=== PATIENT | female | born 1935 | race Caucasian/White ===

== ENCOUNTER 2022-10-06 13:06 | Outpatient (AMB) | payer OTHER, SELFPAY ==
[2022-10-06 13:21] VITALS: BP 182/80; PULSE 98; RESP 18; O2SAT 94; BMI 25.9
--- NOTE | 2022-10-06 13:21 | A.OFFVIS_ITS ---
Intake Vital Signs 10/06/22 13:21 Height 5 ft 3 in Weight 146 lb 8 oz BMI 25.9 BP 182/80 H Blood Pressure Location Lt brachial Position Sitting Respiration 18 Pulse 98 Pulse Source Pulse Oximeter Pulse Oximetry (%) 94 Oxygen Delivery Method Room Air Intake Visit Reasons: Severe spinal stenosis Allergies No Known Allergies Allergy (Verified 10/06/22 13:18) HPI HPI Comments History of Present Illness Details Kristen is a very pleasant 87 year old female who presents to the office today with her daughter for evaluation and management of her chronic lower back pain. Patient has been suffering with this pain for many years, she has been under treatment at [facility] where she has received two epidural steroid injections with minimal relief. She is awaiting insurance authorization for a third TFESI per patient, confirmed on referral paperwork received from their office. She has tried OTC medications without relief, she reports inability to take NSAIDs d/t kidney impairment but states will take when pain is severe and does get some relief. She is on Tramadol 50mg po twice daily with minimal relief, asking if she should increase her dose for better pain control. She was evaluated by surgeon with [facility] and was told that she is not a surgical candidate d/t her age and current smoking status. Patient reports pain left lower back radiating down left leg. Pain most severe with walking to the point she gave her hearing service dog away because she was not able to care for the dog. Ambulates with roller walker, states her left leg will give out at times. She denies red flag symptoms including new loss of bowel, bladder or saddle anesthesia. In terms of muscle damage condition is described as aching, shooting, stabbing, tiring, exhausting, sharp and throbbing. Pain negatively impacting her walking, mood, overall functioning and mobility. [facility] Medical History (Updated 10/06/22 @ 14:43 by Keyla Wilkinson, BUSINESS OBJECTS DEVELOPER, RFID STRATEGIST) Chronic obstructive pulmonary disease, unspecified Emphysema, unspecified High blood pressure Osteopenia Osteoporosis Review of Systems Const All systems reviewed & are unremarkable except as noted in HPI and below Physical Exam Vital Signs: Last Vital Signs Pulse 98 10/06/22 13:21 Resp 18 10/06/22 13:21 BP 182/80 H 10/06/22 13:21 Pulse Ox 94 10/06/22 13:21 Oxygen Delivery Method Room Air 10/06/22 13:21 BMI result Body Mass Index 25.9 General: awake, alert, oriented. Answers questions appropriately. Fully engaged in examination. Skin: warm, dry, intact without visible rashes or lesions. HEENT: Normocephalic. Hearing impaired. Cardiac: External chest normal in appearance. Respiratory: No cough, audible wheezing or stridor. Abdomen: without gross distension. MS: Able to transition from sit to stand unassisted. Ambulates with use of roller walker Neurological: Oriented to person, place, time and situation. Thought process intact. Psychiatric: Appropriate mood and affect. Good judgment and insight. Results Reviewed Results Reviewed: Assessment & Plan Assessment & Plan (1) Lumbar stenosis with neurogenic claudication: Code(s): M48.062 - Spinal stenosis, lumbar region with neurogenic claudication Plan Kristen is a very pleasant 87 year old female who presents to the office today for evaluation and management of her chronic lower back pain. History and physical exam consistent with lumbar spinal stenosis with neurogenic claudication. Discussed with patient that after review of her MRI results she is not candidate for MILD procedure d/t instability, 9mm L4-5 anterolisthesis. Referral sent to Dr Carpenter for neurosurgical evaluation. Patient will obtain MRI disc from [facility] and hand deliver to our office. Tens unit ordered, patient provided pamphlet with instructions for use. Topical compound cream sent to pharmacy, patient instructed on use. Patient discouraged from increasing her Tramadol dose d/t increased risk of falls. She reports her gait is already slightly unsteady and at times left leg will give out, she lives alone and a fall could lead to debilitating injury/permanent disability/. Discussed options for treatment including diagnostic interventional testing, epidural steroid injections, peripheral nerve stimulation with Sprint, RFA and more permanent neuromodulation. Informational pamphlets provided. Patient would like to proceed with Fluoroscopy guided Caudal DAVID with local anesthetic. She will call [facility] and cancel pending insurance authorization for TFESI. Pamphlet for [facility]CS provided to patient to review, would need psych eval prior for clearance prior to moving forward with implantable device. All questions and concerns have been answered and patient agrees with the plan. Follow up after injection and sooner if needed. Orders: Referrals Neuro Spine Referral M48.062 - Spinal stenosis, lumbar region with neurogenic claudication Medications: New cream base no.105 (bulk) (Base W301 cream) Ketoprofen 10%, Baclofen 5%, Cyclobenzaprine 2%, Bupivacaine 1% SIG: apply pea-sized amount 3-5 times daily to painful areas as needed 180 grams 1RF pain Coding Level of Care Code New Pt Level 4 (18549) Diagnoses Lumbar stenosis with neurogenic claudication M48.062
== END 2022-10-06 14:08 | disposition home or self-care (01) ==
PROVIDERS: PCP Physician Assistant; Visit Provider Registered Nurse Emergency
DX: M48.062 Spinal stenosis, lumbar region with neurogenic claudication (principal)
CPT/HCPCS: 99204

== ENCOUNTER → 2022-10-06 13:06 | Outpatient (BNVA) | payer OTHER, SELFPAY | PROVIDERS: PCP Physician Assistant; Visit Provider Registered Nurse Emergency | DX: M48.062 Spinal stenosis, lumbar region with neurogenic claudication (principal) | CPT/HCPCS: 99202 ==

== ENCOUNTER 2022-10-26 06:00 | Outpatient (REF) | payer OTHER, SELFPAY ==
--- NOTE | ~2022-10-26 | FL_ITS ---
CLINICAL INDICATION: Lumbar radiculopathy. FINDINGS: Technical assistance and equipment were provided by the Department of Radiology during intraoperative fluoroscopy. 3, limited fluoroscopic spot images are submitted. A radiologist was not present during the procedure. Initial image demonstrates the tip of a percutaneous needle to project over the posterior elements of the lower cervical spine. Subsequent images demonstrate what may be placement of a tubular structure and injection of contrast in this general region. The images are available for review on PACS. TOTAL FLUOROSCOPY TIME: 0.5 minutes. DOSE AREA PRODUCT: 0.06 mGy-m2 (milligray-meter squared) FL/FL guidance in treatment room IMPRESSION: Technical assistance and equipment provided by the Department of Radiology during intraoperative fluoroscopy, as above. Please see operative report for further details.
== END 2022-10-26 06:01 | disposition home or self-care (01) ==
LOC: CF 06:00
PROVIDERS: Visit Provider Internal Medicine
DX: M48.062 Spinal stenosis, lumbar region with neurogenic claudication (principal); M54.16 Radiculopathy, lumbar region
CPT/HCPCS: 62323; J1040

== ENCOUNTER 2022-10-26 09:03 | Outpatient (AMB) | payer OTHER, SELFPAY ==
--- NOTE | 2022-10-26 09:11 | A.OFFVIS_ITS ---
Intake Vital Signs 10/26/22 09:47 10/26/22 09:48 BP 178/78 H 186/70 H Blood Pressure Location Lt brachial Lt brachial Position Sitting Sitting Respiration 14 14 Pulse 71 71 Pulse Source Pulse Oximeter Pulse Oximeter Pulse Oximetry (%) 94 93 Oxygen Delivery Method Room Air Room Air Intake Visit Reasons: caudal DAVID w/ cath Allergies No Known Allergies Allergy (Verified 10/26/22 09:11) HPI caudal DAVID w/ cath HPI Details Patient presents for scheduled procedure. Denies any recent cough, cold, infection, fever or other significant changes in medical history since last office visit. [facility] Medical History (Updated 10/06/22 @ 14:43 by Keyla Wilkinson, MARINE SERVICE STATION ATTENDANT, REGIONAL CONTROLLER) Chronic obstructive pulmonary disease, unspecified Emphysema, unspecified High blood pressure Osteopenia Osteoporosis Office Procedures Joint Injection/Drain Joint Injection/Drain Details: Caudal DAVID with catheter After obtaining written consent, pre-procedure blood pressure and pulse were measured. Standard monitors were applied. The patient was placed in the prone position. The lumbosacral area was widely prepped with chloraprep and draped in sterile fashion. The skin overlying the target was anesthetized with 0.5% lidocaine. A 17 G needle was used to access the caudal epidural space using anatomic landmarks and x-ray guidance. We then threaded a catheter up to the L5/S1 level and injected contrast 1cc Isovue 300 for verification of epidural spread. Following negative aspiration of heme or CSF, 10 mL of normal saline and then a mixture of 5 ml 0.5% lidocaine with 80 mg methylprednisolone was injected with minimal pressure into the epidural space. The needle was removed, skin cleansed and a sterile bandage was applied. The patient tolerated the procedure well and no complications were encountered. Following the procedure the patient's vital signs were stable. The patient was discharged home in good condition with post-procedural instructions. Time Out: Immediately prior to the procedure, the following was verbally confirmed that there is a signed consent form and that the correct patient, planned procedure, site and side are consistent with documentation and that necessary equipment and/or blood products are available prior to the start of the case. Complications: none EBL: <5 cc Coding 94404 - Caudal/Lumbar Epidural/Interlaminar with fluoroscopy Procedure code (CPT) selection complete Assessment & Plan Assessment & Plan (1) Lumbar stenosis with neurogenic claudication: Code(s): M48.062 - Spinal stenosis, lumbar region with neurogenic claudication (2) Lumbar radiculopathy: Code(s): M54.16 - Radiculopathy, lumbar region Plan Patient is status post caudal DAVID with catheter threaded towards left L5/S1 level. Patient tolerated procedure well and was discharged home in stable condition with discharge instructions. All questions were answered. We will follow-up via telephone or in clinic to assess response to therapy. A follow-up appointment was made during today's visit. Coding Level of Care Code Procedure Only Diagnoses Lumbar stenosis with neurogenic claudication M48.062 Lumbar radiculopathy M54.16 CPT Codes Coding - Joint 11: 81197 - Caudal/Lumbar Epidural/Interlaminar with fluoroscopy ([id number])
[2022-10-26 09:47] VITALS: BP 178/78; PULSE 71; RESP 14; O2SAT 94
[2022-10-26 09:48] VITALS: BP 186/70; PULSE 71; RESP 14; O2SAT 93
== END 2022-10-26 09:47 | disposition home or self-care (01) ==
LOC: HO.PMCPRC 09:04
PROVIDERS: PCP Physician Assistant; Visit Provider Internal Medicine
DX: M48.062 Spinal stenosis, lumbar region with neurogenic claudication (principal); M54.16 Radiculopathy, lumbar region
CPT/HCPCS: 62323

== ENCOUNTER 2022-11-01 13:58 | Outpatient (AMB) | payer OTHER, SELFPAY ==
--- NOTE | 2022-11-01 14:34 | A.SPINEOV_ITS ---
Intake Intake Visit Reasons: low back pain Intake Note: Ms. Brewster is here today c/o low back pain. MRI done @ [facility]/brought disc. Farmworker Fruit Required: No Allergies No Known Allergies Allergy (Verified 10/26/22 09:11) Assessment & Plan Assessment & Plan (1) Lumbar radiculopathy: Code(s): M54.16 - Radiculopathy, lumbar region Plan Dear Keyla, Thank you for referring Mrs Brewster to our office today. She is an 87-year-old female who was in her usual state health until December last year when she was out for a walk and noticed that she was not feeling normal. She thought she just slept wrong but over the following few days she developed a severe radiculopathy going down into her left leg into her lateral calf and into her lateral ankle. The pain is gotten progressively worse over time to where now she has to walk with a walker. Last year she was able to do things like kayaking and walk the track at the [facility]. She is very frustrated and feels like this has aged her quickly. If she is sitting she has no pain at all but when she stands and tries to walk it almost immediately makes her have to sit down. She tried doing epidural injections at [facility] as well as at the [facility] office. She has not gotten any relief from the injections. She tried physical therapy. She has tried tramadol, oxycodone, gabapentin and duloxetine. Nothing seems to be working and she is very frustrated with her quality of life at this point. She did undergo an MRI and x-ray showing a grade 1-2 spondylolisthesis at L4-5. She saw Dr. Najera at [facility] who was concerned about doing surgery on her at her age, specifically he was going to do a spinal fusion procedure in told her that he was not sure would even work but was very reluctant to try anything else. She is here today for 2nd opinion. PMH: She is missing 1 of her kidneys secondary to an E coli infection in the when she was septic. She has a history of hypertension, lifelong smoker and hysterectomy Social hx: She currently smokes about half a pack a day Medications: Oxycodone, gabapentin, Clyo 3, multi vitamin, loratadine, valsartan and duloxetine Allergies: None Physical exam: She walks with a walker, she has full strength of bilateral lower extremities. Imaging review: Lumbar MRI done a [facility] as well as standing flexion-extension x-ray show grade 1-2 spondylolisthesis at L4-5 with small amount of movement on flexion-extension studies. There is compression in the right L4 foramen and in the lateral recess on the left at L4-5 and moderate stenosis in the L5 foramen Impression: 87-year-old female presenting with an left L5 radiculopathy, suspected to be caused by the spondylolisthesis at L4-5, and some foraminal compression in the L5 foramen. Her x-rays do show some evidence of movement with flexion-extension. She has been turned down at [facility] because of her age in considerations of possible hardware failure and complications. She has failed conservative treatment. She is asking if anything else can be done. Typically this would be a situation where we would consider something like an OLIF with a larger cage, but because of her age and her bone quality she is high risk for complications. She is also wishing to avoid the extensive recovery of lumbar fusion. I told her I would speak with Dr. Carpenter to see if he has any other minimally invasive options like a simple small laminotomy to try to decompress the nerve. I could not make any promises but told her I would discuss it with him. I will get back to her once I have a chance to review the imaging with him. Thank you for allowing us to care for your patient. The total time spent with this visit with this patient was 45 minutes reviewing history, physical exam, lumbar imaging review, and implementation of treatment plan or further diagnostic testing Luiz Carpenter MD,PhD [facility] Coding Level of Care Code New Pt Level 4 (37532) Diagnoses Lumbar radiculopathy M54.16
== END 2022-11-01 14:45 | disposition home or self-care (01) ==
PROVIDERS: PCP Physician Assistant; Referring Provider Registered Nurse Emergency; Visit Provider Physician Assistant
DX: M54.16 Radiculopathy, lumbar region (principal)
CPT/HCPCS: 99204

== ENCOUNTER → 2022-11-01 13:58 | Outpatient (BNVA) | payer OTHER, SELFPAY | PROVIDERS: PCP Physician Assistant; Referring Provider Registered Nurse Emergency; Visit Provider Physician Assistant | DX: M54.16 Radiculopathy, lumbar region (principal) | CPT/HCPCS: 99202 ==

== ENCOUNTER 2022-12-14 13:05 | Outpatient (AMB) | payer OTHER, SELFPAY ==
--- NOTE | 2022-12-14 13:19 | A.SPINEOV_ITS ---
Intake Intake Visit Reasons: Meet Dr. Carpenter Intake Note: Ms. Brewster is here today to meet Dr. Carpenter. She is scheduled for Lt. L4-5 MLD 01/05/23. Allergies No Known Allergies Allergy (Verified 10/26/22 09:11) Assessment & Plan Assessment & Plan (1) Lumbar stenosis with neurogenic claudication: Code(s): M48.062 - Spinal stenosis, lumbar region with neurogenic claudication Plan Dear colleague, on 12/14/2022 I saw for preoperative visit Kristen Gilmore. She scheduled to undergo a unilateral L4-5 decompression to address left lumbar radiculopathy. We briefly discussed the procedure and expected postoperative course. I will keep you updated on her progress. Nathan Carpenter MD, PhD Spine Fellowship Trained Neurosurgeon Director, [facility] Coding Level of Care Code Est Pt Level 2 (08185) Diagnoses Lumbar stenosis with neurogenic claudication M48.062
== END 2022-12-14 13:37 | disposition home or self-care (01) ==
PROVIDERS: PCP Physician Assistant; Visit Provider Neurological Surgery
DX: M48.062 Spinal stenosis, lumbar region with neurogenic claudication (principal)
CPT/HCPCS: 99212

== ENCOUNTER → 2022-12-14 13:05 | Outpatient (BNVA) | payer OTHER, SELFPAY | PROVIDERS: PCP Physician Assistant; Visit Provider Neurological Surgery | DX: M48.062 Spinal stenosis, lumbar region with neurogenic claudication (principal) | CPT/HCPCS: 99212 ==

== ENCOUNTER → 2023-01-05 11:33 | Day surgery (SDC) | payer OTHER, SELFPAY ==
[2022-12-16 13:15] VITALS: BP 197/88; PULSE 63; RESP 16; O2SAT 95; BMI 25.7
--- NOTE | 2022-12-16 14:15 | ECG_ITS ---
Test Reason : preop24 Blood Pressure : / mmHG Vent. Rate : 060 BPM Atrial Rate : 060 BPM P-R Int : 162 ms QRS Dur : 088 ms QT Int : 422 ms P-R-T Axes : 069 040 056 degrees QTc Int : 422 ms Normal sinus rhythm Possible Left atrial enlargement Borderline ECG No previous ECGs available Referred By: Analy Young Electronically Signed By:JOSE R DUKE MD
[2022-12-16 15:28] LABS: Hemoglobin 14.8 g/dl (12.0-16.0); Mean Corpuscular HGB Conc 33.6 g/dl (31.0-35.0); Mean Corpuscular Hemoglobin 31.9 pg (27.0-33.0); Mean Corpuscular Volume 94.8 fL (80.0-98.0); Mean Platelet Volume 10.3 fL (9.4-12.3); Platelet Count 256 X10*3/uL (160-400); Red Blood Count 4.64 X10*6/uL (4.20-5.50); Red Cell Distribution Width 13.4 % (11.0-16.0); White Blood Count 10.8 X10*3/uL (4.8-10.8)
[2022-12-16 15:58] LABS: Anion Gap 14 (12-20); Blood Urea Nitrogen 22 mg/dL (9-16); Calcium 10.7 mg/dL (8.4-10.2); Carbon Dioxide 28 mmol/L (22-29); Chloride 101 mmol/L (96-108); Creatinine Clr Calc Pharmacy 42.2; Estimated Glomerular Filt Rate > 60; Glucose Random 75 mg/dL (60-115); Potassium 4.2 mmol/L (3.3-5.1); Sodium 139 mmol/L (135-145)
--- NOTE | 2023-01-04 13:41 | HO.ANESPROP2 ---
HPI - Anesthesia Eval Consult details Narrative: 87yo F for Left L4-L5 Lumbar Decompression PAT eval with Dr Young on 12/16/22 BP elevated at PAT (WNL at PCP appointment) Medically optimized per PCP Follows Zoya mclaughlin. Last office visit 07/2022. Stable on low dose Trelegy and only prn f/u. Smoker PMFSH Active Problems Active Problems: All Active Problems (Updated 12/16/22 @ 12:39 by Arianna Bowie RN) Lumbar radiculopathy (Acute) Facet arthritis of lumbar region (Acute) Lumbar stenosis with neurogenic claudication (Acute) Past Medical History Medical History (Updated 12/16/22 @ 12:39 by Arianna Bowie RN) Back pain History of decreased renal function Depression Weakness of left leg History of hearing loss Hx of sepsis Emphysema, unspecified Chronic obstructive pulmonary disease, unspecified Osteoporosis Osteopenia High blood pressure Surgical History Surgical History (Updated 12/16/22 @ 12:37 by Arianna Bowie RN) H/O colonoscopy Hx of hysterectomy Social History Social History Are you a primary farm or ranch animal caretaker to a significant other at home: No Do you presently have visiting nurse or other home services: Yes (PCT) Patient Tobacco Use Status: Current everyday Tobacco user Tobacco use type: Cigarette Cigarettes Per Day: 5 Years Smoked: 70 Use of substances other than those prescribed or required for medical reasons: No Substance Use Type Other:: gummies Substance Use Frequency: Occasionally Have you been hit, kicked, punched, or otherwise hurt by someone within the past year? If so, by whom?: No Advance Directives: No Advance Directives Information Provided: No Advance Directives on File: No Recently lost weight without trying: No Eating poorly because of decreased appetite: No Nutrition Risks: No Nutritional Risk Patient : No : No Poor oral hygiene: Yes (upper crowns) Meds Allergies Allergy/AdvReac Type Severity Reaction Status Date / Time No Known Allergies Allergy Verified 10/26/22 09:11 Home Medications Medication Instructions Recorded Confirmed Last Taken Type aripiprazole 5 mg tablet 5 mg PO DAILY 10/06/22 12/16/22 Unknown History fluticasone fur. 100 mcg-umeclid 1 ea inhalation DAILY 10/06/22 12/16/22 Unknown History 62.5 mcg-vilant 25 mcg inhalat.powder (Trelegy Ellipta) folic acid 1 mg tablet 1 mg PO DAILY 10/06/22 12/16/22 Unknown History gabapentin 100 mg capsule 200 mg PO DAILY 10/06/22 12/16/22 Unknown History ipratropium bromide 42 mcg (0.06 1 spray intranasal DAILY PRN 10/06/22 12/16/22 Unknown History %) nasal spray Allergy Symptoms loratadine 10 mg tablet 10 mg PO DAILY 10/06/22 12/16/22 Unknown History nebivolol 10 mg tablet 10 mg PO DAILY 10/06/22 12/16/22 Unknown History tramadol 50 mg tablet 150 mg PO DAILY PRN Pain 10/06/22 12/16/22 Unknown History valsartan 160 mg tablet 160 mg PO DAILY 10/06/22 12/16/22 Unknown History cream base no.105 (bulk) (Base See Rx Instructions miscellaneous 12/16/22 12/16/22 Unknown History W301 cream) .COMPLEX PRN pain gabapentin 100 mg capsule 100 mg PO BEDTIME 12/16/22 12/16/22 Unknown History tramadol 50 mg tablet 50 mg PO DAILY@1700 12/16/22 12/16/22 Unknown History Exam Exam Date and Time: January 04, 2023 1341 Height,Weight and Vital Signs: Height 5 ft 3 in Weight 65.771 kg Last Vital Signs Pulse 63 12/16/22 13:15 Resp 16 12/16/22 13:15 BP 197/88 H 12/16/22 13:15 Pulse Ox 95 12/16/22 13:15 O2 Del Method Room Air 12/16/22 13:15 Pertinent Lab Results Pertinent Lab Results: Laboratory Tests 12/16/22 14:30 WBC 10.8 RBC 4.64 Hgb 14.8 Hct 44.0 MCV 94.8 MCH 31.9 MCHC 33.6 RDW 13.4 Plt Count 256 MPV 10.3 Absolute Nucleated RBC 0.000 Nucleated RBC % (auto) 0.0 Sodium 139 Potassium 4.2 Chloride 101 Carbon Dioxide 28 Anion Gap 14 BUN 22 H Creatinine 0.84 Estim Creat Clear Calc 42.2 Estimated GFR > 60 Random Glucose 75 Calcium 10.7 H Narrative Narrative: EKG 11/2022 Vent. Rate : 060 BPM Atrial Rate : 060 BPM P-R Int : 162 ms QRS Dur : 088 ms QT Int : 422 ms P-R-T Axes : 069 040 056 degrees QTc Int : 422 ms Normal sinus rhythm Possible Left atrial enlargement Borderline ECG No previous ECGs available Assessment and Plan Assessment Anesthesia Assessment: Chart Reviewed
--- NOTE | 2023-01-05 07:03 | MHC.SHP ---
Pre-Procedural Eval Section A Date of Service: 01/05/23 Section B Chief Complaint: Radiculopathy, lumbar region Allergies: Allergies Allergy/AdvReac Type Severity Reaction Status Date / Time No Known Allergies Allergy Verified 10/26/22 09:11 Review of Systems Sugical H&P ROS: Negative: Constitution, Cardiovascular, Respiratory, Neurological, Psychiatric, Hem-Onc, Allergic/Immunologic, Gastrointestinal, Genitourinary, Musculoskeletal, Integumentary, Endocrine and Eyes/Ears/Nose/Throat Exam Surgical H&P Exam: Not Evaluated: HEENT, Not Evaluated: Heart, Not Evaluated: Lungs, Not Evaluated: Extremities, Not Evaluated: Abdomen, Not Evaluated: Skin and Not Evaluated: Neurological Plan Diagnosis/Plan: Unchanged I have reviewed the history and physical and performed a pertinent physical examination on my patient. No changes have occurred unless specified. Plan remains the same, left L4-5 lumbar decompression Time Spent With Patient Time: Total time managing care of this patient today _10___ minutes.
[2023-01-05 11:52] VITALS: BP 214/68; PULSE 68; RESP 20; TEMP 36.6; O2SAT 95
[2023-01-05 12:00] VITALS: BP 234/78; PULSE 70; RESP 18
--- NOTE | 2023-01-05 12:06 | PC.NURSE ---
pt being cancelled b/p high sts took double dose of b/p meds last night denies c/p denies dizziness sts b/p alway high seen pcp for her b/p. will f/u with pcp . spoke to daughter elli aware careplan and need to f/u with pcp
== END ==
PROVIDERS: Anesthesiology; PCP Family Medicine; Visit Provider Neurological Surgery
DX: M54.16 Radiculopathy, lumbar region (principal); Z53.09 Procedure and treatment not carried out because of other contraindication; I10 Essential (primary) hypertension
CPT/HCPCS: 36415; 80048; 85027; 93005

== ENCOUNTER 2023-02-28 09:14 | Day surgery (SDC) | payer OTHER, SELFPAY ==
[2023-02-17 11:47] VITALS: BMI 24.4
--- NOTE | 2023-02-27 09:39 | P.CONAN_ITS ---
HPI - Anesthesia Eval Consult details Narrative: 87yo F for Left L4-L5 Lumbar Decompression PAT eval with Dr Young on 12/16/22 then cx'd DOS d/t high BP. BP elevated at PAT (WNL at PCP appointment) Medically optimized per PCP. Re-eval after surgery cx'd. BP ok at visit and re- cleared Follows Zoya mclaughlin. Last office visit 07/2022. Stable on low dose Trelegy and only prn f/u. Smoker PMFSH Active Problems Active Problems: All Active Problems (Updated 02/17/23 @ 11:05 by Arianna Bowie RN) Lumbar radiculopathy (Acute) Facet arthritis of lumbar region (Acute) Lumbar stenosis with neurogenic claudication (Acute) Past Medical History Medical History (Updated 02/17/23 @ 11:05 by Arianna Bowie RN) Overactive bladder Incontinence Atrophy of left kidney COVID-19 Back pain History of decreased renal function Depression Weakness of left leg History of hearing loss Hx of sepsis Emphysema, unspecified Chronic obstructive pulmonary disease, unspecified Osteoporosis Osteopenia High blood pressure Surgical History Surgical History (Updated 12/16/22 @ 12:37 by Arianna Bowie RN) H/O colonoscopy Hx of hysterectomy Social History Social History Are you a primary animal care provider to a significant other at home: No Do you presently have visiting nurse or other home services: Yes (meals on wheels) Patient Tobacco Use Status: Current everyday Tobacco user Tobacco use type: Cigarette Cigarettes Per Day: 3 Years Smoked: 70 Use of substances other than those prescribed or required for medical reasons: No Have you been hit, kicked, punched, or otherwise hurt by someone within the past year? If so, by whom?: No Advance Directives: No Advance Directives Information Provided: No Advance Directives on File: No Recently lost weight without trying: No Eating poorly because of decreased appetite: No Nutrition Risks: No Nutritional Risk Patient : No : No Poor oral hygiene: No Meds Allergies Allergy/AdvReac Type Severity Reaction Status Date / Time No Known Allergies Allergy Verified 10/26/22 09:11 Home Medications Medication Instructions Recorded Confirmed Last Taken Type fluticasone fur. 100 mcg-umeclid 1 ea inhalation BEDTIME 10/06/22 02/17/23 Unknown History 62.5 mcg-vilant 25 mcg inhalat.powder (Trelegy Ellipta) folic acid 1 mg tablet 1 mg PO DAILY 10/06/22 02/17/23 Unknown History gabapentin 100 mg capsule 200 mg PO DAILY 10/06/22 02/17/23 Unknown History loratadine 10 mg tablet 10 mg PO DAILY 10/06/22 02/17/23 Unknown History nebivolol 10 mg tablet 20 mg PO DAILY 10/06/22 02/17/23 Unknown History tramadol 50 mg tablet 150 mg PO DAILY PRN Pain 10/06/22 02/17/23 Unknown History valsartan 160 mg tablet 320 mg PO DAILY 10/06/22 02/17/23 Unknown History cream base no.105 (bulk) (Base See Rx Instructions miscellaneous 12/16/22 12/16/22 Unknown History W301 cream) .COMPLEX PRN pain gabapentin 100 mg capsule 100 mg PO BEDTIME 12/16/22 02/17/23 Unknown History tramadol 50 mg tablet 100 mg PO DAILY@1700 12/16/22 02/17/23 Unknown History amlodipine 5 mg tablet 10 mg PO BEDTIME 02/17/23 02/17/23 Unknown History cholecalciferol (vitamin D3) 25 25 mcg PO DAILY 02/17/23 02/17/23 Unknown History mcg (1,000 unit) tablet (Vitamin D3) diazepam 5 mg tablet 2.5 mg PO DAILY PRN Anxiety 02/17/23 02/17/23 Unknown History docosahexaenoic acid (dha)-epa 120 1 cap PO DAILY 02/17/23 02/17/23 Unknown History mg-180 mg capsule (Fish Oil) duloxetine 20 mg capsule,delayed 20 mg PO DAILY 02/17/23 02/17/23 Unknown History release ipratropium bromide 42 mcg (0.06 2 spray intranasal TID 02/17/23 02/17/23 Unknown History %) nasal spray ketoconazole 2 % topical cream 1 appl topical DAILY 02/17/23 02/17/23 Unknown History multivitamin 1 tab PO DAILY 02/17/23 02/17/23 Unknown History mupirocin 2 % topical ointment 1 appl topical DAILY 02/17/23 02/17/23 Unknown History nicotine (polacrilex) 2 mg buccal 2 mg buccal Q1-2H PRN Smoking 02/17/23 02/17/23 Unknown History lozenge Cessation nicotine 14 mg/24 hr daily 1 patch topical DAILY 02/17/23 02/17/23 Unknown History transdermal patch Exam Exam Date and Time: January 04, 2023 1341 Height,Weight and Vital Signs: Height 5 ft 3 in Weight 62.596 kg Pertinent Lab Results Pertinent Lab Results: Laboratory Tests 12/16/22 14:30 WBC 10.8 Hgb 14.8 Hct 44.0 Plt Count 256 Sodium 139 Potassium 4.2 Chloride 101 Carbon Dioxide 28 BUN 22 H Creatinine 0.84 Narrative Narrative: EKG 11/2022 Vent. Rate : 060 BPM Atrial Rate : 060 BPM P-R Int : 162 ms QRS Dur : 088 ms QT Int : 422 ms P-R-T Axes : 069 040 056 degrees QTc Int : 422 ms Normal sinus rhythm Possible Left atrial enlargement Borderline ECG No previous ECGs available Assessment and Plan Assessment Anesthesia Assessment: Chart Reviewed
--- NOTE | ~2023-02-28 | FL_ITS ---
EXAMINATION: XR FLUOROSCOPY WITH IMAGES CLINICAL INFORMATION: L4-L5 lumbar decompression, left. COMPARISON: None available. TECHNIQUE: Fluoroscopy Supervised By: Dr. Carpenter. Fluoroscopy Time: 0.0 minutes. Cumulative Dose: 1.2 mGy. DAP: 0.264 Gycm2. Images: 1. FINDINGS: Technical assistance and equipment were provided by the Department of Radiology during intraoperative fluoroscopy. A total of 1 limited fluoroscopic spot image is submitted for archival purposes. A radiologist was not present during the procedure. The images are available for review on PACS. FL/FL guidance in OR IMPRESSION: Technical assistance and equipment provided by the Department of Radiology during procedural fluoroscopy, as above. Please see procedure report for further details.
--- NOTE | 2023-02-28 07:06 | MHC.SHP ---
Pre-Procedural Eval Section A Date of Service: 02/28/23 The patient is an INPATIENT: No Changes since office visit: No Cold of Flu in the past 2 weeks, No New Medical Problems, No Changes in Medication and No Patient answered all questions The History & Physical has been completed within 30 days and I have reviewed it.: No Section B Chief Complaint: Radiculopathy, lumbar region Allergies: Allergies Allergy/AdvReac Type Severity Reaction Status Date / Time No Known Allergies Allergy Verified 10/26/22 09:11 Review of Systems Sugical H&P ROS: Negative: Constitution, Cardiovascular, Respiratory, Neurological, Psychiatric, Hem-Onc, Allergic/Immunologic, Gastrointestinal, Genitourinary, Musculoskeletal, Integumentary, Endocrine and Eyes/Ears/Nose/Throat Exam Surgical H&P Exam: Not Evaluated: HEENT, Not Evaluated: Heart, Not Evaluated: Lungs, Not Evaluated: Extremities, Not Evaluated: Abdomen, Not Evaluated: Skin and Not Evaluated: Neurological Plan Diagnosis/Plan: Unchanged Left L4-5 decompression Time Spent With Patient Time: Total time managing care of this patient today _5___ minutes.
--- NOTE | 2023-02-28 09:53 | P.CONAN_ITS ---
FORM[facility] Active Problems Active Problems: All Active Problems (Updated 02/17/23 @ 11:05 by Arianna Bowie RN) Lumbar radiculopathy (Acute) Facet arthritis of lumbar region (Acute) Lumbar stenosis with neurogenic claudication (Acute) Past Medical History Medical History (Updated 02/17/23 @ 11:05 by Arianna Bowie RN) Overactive bladder Incontinence Atrophy of left kidney COVID-19 Back pain History of decreased renal function Depression Weakness of left leg History of hearing loss Hx of sepsis Emphysema, unspecified Chronic obstructive pulmonary disease, unspecified Osteoporosis Osteopenia High blood pressure Family History Family history of problems with anesthesia: No Surgical History Surgical History (Updated 12/16/22 @ 12:37 by Arianna Bowie RN) H/O colonoscopy Hx of hysterectomy History of Problems with Anesthesia: No Social History Social History Are you a primary career services representative to a significant other at home: No Do you presently have visiting nurse or other home services: Yes (meals on wheels) Patient Tobacco Use Status: Current everyday Tobacco user Tobacco use type: Cigarette Cigarettes Per Day: 3 Years Smoked: 70 Use of substances other than those prescribed or required for medical reasons: No Have you been hit, kicked, punched, or otherwise hurt by someone within the past year? If so, by whom?: No Advance Directives: No Advance Directives Information Provided: Yes Advance Directives on File: No Recently lost weight without trying: No Eating poorly because of decreased appetite: No Nutrition Risks: No Nutritional Risk Patient : No : No Poor oral hygiene: No Meds Allergies Allergy/AdvReac Type Severity Reaction Status Date / Time No Known Allergies Allergy Verified 10/26/22 09:11 Active Medications: Current Medications Albuterol Sulfate (Albuterol Sulfate (0.083%) 2.5 Mg/3 Ml Vial.Neb) 2.5 mg INHALE ONCE PRN PRN Reason: Shortness of Breath/Wheezing Lactated Ringer's (Lr) 1,000 mls @ 100 mls/hr IVCONT .Q10H PELON Cefazolin Sodium/Dextrose (Ancef) 2 gm in 50 mls @ 100 mls/hr IV PREOP ONE Stop: 02/28/23 10:02 Home Medications Medication Instructions Recorded Confirmed Last Taken Type fluticasone fur. 100 mcg-umeclid 1 ea inhalation BEDTIME 10/06/22 02/17/23 Unknown History 62.5 mcg-vilant 25 mcg inhalat.powder (Trelegy Ellipta) folic acid 1 mg tablet 1 mg PO DAILY 10/06/22 02/17/23 Unknown History gabapentin 100 mg capsule 200 mg PO DAILY 10/06/22 02/17/23 Unknown History loratadine 10 mg tablet 10 mg PO DAILY 10/06/22 02/17/23 Unknown History nebivolol 10 mg tablet 20 mg PO DAILY 10/06/22 02/17/23 Unknown History tramadol 50 mg tablet 150 mg PO DAILY PRN Pain 10/06/22 02/17/23 Unknown History valsartan 160 mg tablet 320 mg PO DAILY 10/06/22 02/17/23 Unknown History cream base no.105 (bulk) (Base See Rx Instructions miscellaneous 12/16/22 12/16/22 Unknown History W301 cream) .COMPLEX PRN pain gabapentin 100 mg capsule 100 mg PO BEDTIME 12/16/22 02/17/23 Unknown History tramadol 50 mg tablet 100 mg PO DAILY@1700 12/16/22 02/17/23 Unknown History amlodipine 5 mg tablet 10 mg PO BEDTIME 02/17/23 02/17/23 Unknown History cholecalciferol (vitamin D3) 25 25 mcg PO DAILY 02/17/23 02/17/23 Unknown History mcg (1,000 unit) tablet (Vitamin D3) diazepam 5 mg tablet 2.5 mg PO DAILY PRN Anxiety 02/17/23 02/17/23 Unknown History docosahexaenoic acid (dha)-epa 120 1 cap PO DAILY 02/17/23 02/17/23 Unknown History mg-180 mg capsule (Fish Oil) duloxetine 20 mg capsule,delayed 20 mg PO DAILY 02/17/23 02/17/23 Unknown History release ipratropium bromide 42 mcg (0.06 2 spray intranasal TID 02/17/23 02/17/23 Unknown History %) nasal spray ketoconazole 2 % topical cream 1 appl topical DAILY 02/17/23 02/17/23 Unknown History multivitamin 1 tab PO DAILY 02/17/23 02/17/23 Unknown History mupirocin 2 % topical ointment 1 appl topical DAILY 02/17/23 02/17/23 Unknown History nicotine (polacrilex) 2 mg buccal 2 mg buccal Q1-2H PRN Smoking 02/17/23 02/17/23 Unknown History lozenge Cessation nicotine 14 mg/24 hr daily 1 patch topical DAILY 02/17/23 02/17/23 Unknown History transdermal patch Exam Height,Weight and Vital Signs: Height 5 ft 3 in Weight 62.596 kg Airway Mallampati Class: III TM Dist: >3cm Neck ROM: Full Assessment and Plan Assessment Anesthesia Assessment: Anesthesia Plan Discussed and Chart Reviewed Final Anesthetic Review Family History of Problems with Anesthesia: No History of Problems with Anesthesia: No NPO: Yes ASA Class: III Final Preanesthetic Review: No Changes in Pt Med Stat, Meds/Allgs Chart Reviewed, Consent Obtained/Reviewed and Anes Risks/Benef Reviewed Patient Risk: Intermediate Procedure Risk: Intermediate Anesthetic Plan Anesthetic Plan: GA Disposition: Standard PACU
[2023-02-28 10:00] VITALS: BP 142/75; PULSE 70; RESP 16; TEMP 36.7; O2SAT 97
[2023-02-28] MEDS: Gabapentin 300 MG CAPSULE PO (10:03)
[2023-02-28] MEDS: methocarbamoL 750 MG TABLET PO (10:04)
[2023-02-28] MEDS: Lactated Ringers 1,000 ML 100 ML IVCONT (10:11)
--- NOTE | 2023-02-28 11:37 | P.OP_ITS ---
Operative Note Operative Note Date of Service: 02/28/23 Narrative: Preoperative Diagnosis: L4-5 spinal stenosis/lateral recess stenosis/neural foraminal stenosis Operation: Left L4-5 Laminotomy, Partial facetectomy and foraminotomy with use of microscope Consent Informed Consent was obtained for this operation. I have explained the nature, purpose and benefits of the operation. I have discussed the risks and benefit of the operation including possible complications or adverse events with patient/family. Alternative(s) were discussed with the patient with their relative benefits and risks as well as the consequences of not accepting the operation were included in obtaining consent. Surgeon: AVE MÉNDEZ MD, PHD Procedure Assisted By: Luiz Hubbard Description of Procedure This patient is suffering from unilateral neurogenic claudication caused by a grade 2 spondylolisthesis and associated spinal stenosis. The patient was offered a decompression. The procedure complications were explained. The patient was consented. The patient was brought to the operating room and endotracheally intubated. The patient was turned in prone position on the Anmol frame. Prep and drape was done followed by timeout. The Physician physicians assistant provided access. A mid lumbar incision was made followed by release of the paravertebral muscle left to expose the left L4-5 lamina and facet joints. An intraoperative x-ray was obtained to confirm the correct level. The microscope was brought in. I took over the procedure. The high-speed drill was used to do a L4-5 laminotomy until flavum ligament was reached. A #2 Kerrison was used to expand the laminotomy near flush to the pedicles and to include a partial facetectomy. The flavum ligament was opened and resected with a #3 Kerrison to decompress the underlying thecal sac. The flavum ligament was removed to decompress the lateral recess and the exiting L5 nerve root. A long nerve hook could be easily passed along the medial side of the pedicle as a sign of adequate decompression. The microscope was removed. Hemostasis was done. The physician physicians assistant close the Incision in 2 layers. Steri-Strips were used to approximate incision. An OpSite with Tegaderm was used to cover the incision. All sponge needle counts were correct. Patient was extubated and transported in stable is to recovery room. Anesthesia: General Estimated Blood Loss (ml): 10 mL Complications: None Duration of Surgery: Under 60 Minutes Postoperative Plan: Discharge to home
--- NOTE | 2023-02-28 11:46 | PM.DS ---
DS: Providers Provider Date of Service: 02/28/23 Date of discharge: 02/28/23 Primary care physician: Joan Fuentes MD Attending physician on discharge: Nathan Carpenter DS: Diagnosis Discharge Diagnosis (1) Lumbar radiculopathy: Status: Acute DS: Summary Time Attestation Discharge coordination time: Less than 30 minutes Quality: Safe Use of Opioids Does Pt have an Active Cancer Diagnosis on the Problem List?: No Quality: Stroke Does the patient have a stroke diagnosis?: No Physical Exam Vital Signs: Vital Signs: Last Vital Signs Temp 98.0 F 02/28/23 10:00 Pulse 70 02/28/23 10:00 Resp 16 02/28/23 10:00 BP 142/75 H 02/28/23 10:00 Pulse Ox 97 02/28/23 10:00 BMI result Body Mass Index 24.4 Discharge Plan Discharge Patient Disposition: Home, Self-Care Referrals: Joan Fuentes MD [Primary Care Provider] - 1 Week Discharge Medications: Continued Base W301 Cream See Rx Instructions miscellaneous .COMPLEX PRN (Reason: pain) Rx Instructions: Ketoprofen 10%, Baclofen 5%, Cyclobenzaprine 2%, Bupivacaine 1% SIG: apply pea-sized amount 3-5 times daily to painful areas as needed gabapentin 100 mg Capsule 100 mg PO BEDTIME tramadol 50 mg Tablet 100 mg PO DAILY@1700 amlodipine 5 mg tablet 10 mg PO BEDTIME duloxetine 20 mg capsule,delayed release(DR/EC) 20 mg PO DAILY diazepam 5 mg tablet 2.5 mg PO DAILY PRN (Reason: Anxiety) Fish Oil 120-180 mg Capsule 1 cap PO DAILY multivitamin Tablet 1 tab PO DAILY ipratropium bromide 42 mcg (0.06 %) spray,non-aerosol 2 spray intranasal TID ketoconazole 2 % cream 1 appl topical DAILY mupirocin 2 % Ointment 1 appl TOPICAL DAILY nicotine 14 mg/24 hr patch 24 hour 1 patch topical DAILY nicotine (polacrilex) 2 mg Lozenge 2 mg BUCCAL Q1-2H PRN (Reason: Smoking Cessation) cholecalciferol (vitamin D3) [Vitamin D3] 25 mcg (1,000 unit) Tablet 25 mcg PO DAILY gabapentin 100 mg capsule 200 mg PO DAILY tramadol 50 mg tablet 150 mg PO DAILY PRN (Reason: Pain) Trelegy Ellipta 100-62.5-25 mcg blister with device 1 ea inhalation BEDTIME nebivolol 10 mg tablet 20 mg PO DAILY Patient Comments: patient states she was only told to take two tablets per her MD, however her office note says to take 3 tablets loratadine 10 mg tablet 10 mg PO DAILY valsartan 160 mg tablet 320 mg PO DAILY folic acid 1 mg tablet 1 mg PO DAILY Discharge Orders: Discharge Order (Routine); Ordered 02/28/23 Ordered By: Luiz Quiroz Diet: Advance to usual diet Activity on Discharge: As tolerated Activity Restrictions/Additional Instructions: After your spinal surgery we ask you to observe the following restrictions/guidelines: Activity: It is normal to feel some discomfort as you increase your activity, but that will improve with time. We ask you avoid heavy lifting or acitivities that cause pain. As a general rule, 8lbs is a safe limit for lifting right after surgery. Walk as much as you feel comfortable but not to exhaustion. You will feel extra tired the first few days after surgery. Stay well hydrated. It is OK to walk up and down stairs You may return to driving when you are off narcotics (such as vicodin, oxycodone, dilaudid, etc), and you are back to normal functional capacity. If you have any concerns please check with office before driving. Return to work is specific to each patient and each surgery, so please speak with your doctor/PA at first follow up. Please bring paperwork such as FMLA at that time if you need it filled out. Medications: For optimum pain control, it is best to start with a combination of 500 mg of Tylenol every 4 hours with 600 mg of Motrin every 8 hours, and use narcotics as needed in between for breakthrough pain. YOU CAN USE THE TRAMAMDOL OR OXYCODONE PRESCRIBED FOR YOU A FEW WEEKS AGO FOR PAIN, IF YOU NEED ANYTHING ONCE THOSE ARE USED UP PLEASE FEEL FREE TO CALL THE OFFICE FOR A REFILL If you are on a narcotic, it is a good idea to take a stool softener such as colace or senna to avoid constipation If you take blood thinner such as aspirin, Plavix, Coumadin, Effient, Eliquis etc for conditions such as Afib, DVT, Pulmonary embolus, coronary disease, stents etc please speak with your surgeon about specific details as to when you can resume these medications. You can resume NSAIDs on post op day 1 (eg: Motrin, Naproxen, etc). Follow up: Please call the office, , after surgery to arrange a 3 week follow up for wound check. Wound Care: You may remove your dressing on the first day after surgery. You may leave open to air. Please do not remove the steri strips underneath. they will fall off on their own in one week. IT IS NORMAL FOR THE WOUND TO OOZE OR BE BLOODY FOR A FEW DAYS AFTER SURGERY. IF THIS HAPPENS JUST PLACE NEW DRESSING OVER IT TO AVOID STAINING CLOTHES. You may shower on post op day # 1 We ask that you do not let the water soak the wound. If it does get wet, just towel dry lightly. Please do not scrub your incision or place any type of chemical/ointment on the wound. No tub baths, pools or jacuzzis for one month. If you have any leaking or redness from your wound, or fevers, please call office
[2023-02-28 12:00] VITALS: BP 115/38; PULSE 80; RESP 16; TEMP 36.4; O2SAT 100
[2023-02-28 12:05] VITALS: BP 124/43; PULSE 78; RESP 16; O2SAT 98
[2023-02-28 12:10] VITALS: BP 117/52; PULSE 77; RESP 16; O2SAT 95
[2023-02-28 12:15] VITALS: BP 124/52; PULSE 75; RESP 16; O2SAT 96
[2023-02-28 12:30] VITALS: BP 126/57; PULSE 72; RESP 16; TEMP 36.4; O2SAT 96
[2023-02-28] MEDS: traMADoL HCL 50 MG TABLET PO (13:05)
== END 2023-02-28 13:40 | disposition home or self-care (01) ==
PROVIDERS: PCP Family Medicine; Visit Provider Neurological Surgery
PROC: (CPT 63047; principal; 2023-02-28 09:40)
DX: M48.062 Spinal stenosis, lumbar region with neurogenic claudication (principal); M54.16 Radiculopathy, lumbar region; M43.16 Spondylolisthesis, lumbar region; J44.9 Chronic obstructive pulmonary disease, unspecified; J43.9 Emphysema, unspecified; I10 Essential (primary) hypertension; M81.0 Age-related osteoporosis without current pathological fracture; F17.210 Nicotine dependence, cigarettes, uncomplicated; Z79.51 Long term (current) use of inhaled steroids; Z79.899 Other long term (current) drug therapy
CPT/HCPCS: 63047; J0131; J0690; J1100; J2250; J2371; J2405; J2704; J3010

== ENCOUNTER → 2023-02-28 09:14 | Outpatient (BNV) | payer OTHER, SELFPAY | PROVIDERS: PCP Family Medicine; Visit Provider Neurological Surgery | DX: M54.16 Radiculopathy, lumbar region (principal) | CPT/HCPCS: 63047; 99499 ==

== ENCOUNTER 2023-03-23 13:31 | Outpatient (AMB) | payer OTHER, SELFPAY ==
--- NOTE | 2023-03-23 14:00 | A.SPINEOV_ITS ---
Intake Intake Visit Reasons: 1st post op Intake Note: Ms. Brewster is here today for her 1st post-op visit. Dermatologist Required: No Allergies No Known Allergies Allergy (Verified 02/28/23 10:11) Assessment & Plan Assessment & Plan (1) Lumbar radiculopathy: Code(s): M54.16 - Radiculopathy, lumbar region (2) Leg weakness: Code(s): R29.898 - Other symptoms and signs involving the musculoskeletal system Plan Mrs. Brewster is here in follow-up today. She underwent a left L4-5 decompression about 3 weeks ago. She reports that she did have some modest improvement in the left leg pain. What she is noticing more than anything now though is that she is feeling like a diffuse weakness in her leg. The pain was overriding everything before that, but now that the pain is slightly better she is feeling like her leg will give out on her. Especially when she is in the shower or going down stairs. She does not report any numbness in the body either the upper or lower extremities associated with this. She states she has been dealing with it for many months. It is unchanged. I examined her again today, and she does have proximal weakness in the left hip flexor which I would rate as 3/5. The rest of the muscles in the upper lower extremities are full strength. She does have hyperreflexia with White's and clonus. Pupils are equal responsive reactive to light. Face is symmetric, speech is fluent affect is appropriate. Negative JEANIE testing. From the standpoint of the recovery of her lumbar surgery she seems to have done as expected. She may continue to see some improvement in the leg pain, but she has an underlying weakness of her left iliopsoas and some hyperreflexia. She does take duloxetine which is known to cause hyperreflexia but as a precaution I will obtain a cervical MRI to rule out myelopathy. She has no numbness of the arms or legs so my suspicion is low, however at her age she may have an atypical presentation. As a secondary measure, I would also like to rule out that she has not had a stroke in the past or does not have some kind of finding in the brain that might explain unilateral lower extremity weakness. Something like a meningioma or a subdural hematoma. I will order those tests at [facility] at her request and see her back in the office once they are completed. Total amount of time spent in this visit was 20 minutes in discussion of symptoms, order imaging and subsequent plan of care Luiz Carpenter MD,PhD [facility] Orders: Orders MR cervical spine wo con Today R29.898 - Other symptoms and signs involving the musculoskeletal system MR head/brain wo con Today R29.898 - Other symptoms and signs involving the musculoskeletal system Coding Level of Care Code Est Pt Level 3 (41265) Diagnoses Lumbar radiculopathy M54.16 Leg weakness R29.898
== END 2023-03-23 14:12 | disposition home or self-care (01) ==
PROVIDERS: PCP Family Medicine; Visit Provider Physician Assistant
DX: M54.16 Radiculopathy, lumbar region (principal); R29.898 Other symptoms and signs involving the musculoskeletal system
CPT/HCPCS: 99024

== ENCOUNTER → 2023-03-23 13:31 | Outpatient (BNVA) | payer OTHER, SELFPAY | PROVIDERS: PCP Family Medicine; Visit Provider Physician Assistant | DX: Z48.89 Encounter for other specified surgical aftercare (principal); M54.16 Radiculopathy, lumbar region; R29.898 Other symptoms and signs involving the musculoskeletal system | CPT/HCPCS: 99212 ==

== ENCOUNTER 2023-07-21 13:22 | Outpatient (AMB) | payer OTHER, SELFPAY ==
--- NOTE | 2023-07-21 14:06 | HO.SPINEOV ---
Intake Visit Reasons: Follow up Intake Note: Ms. Brewster is here today for a follow up. Head Esthetician Required: No Allergies No Known Allergies Allergy (Verified 02/28/23 10:11) Assessment & Plan Assessment & Plan (1) Lumbar radiculopathy: Code(s): M54.16 - Radiculopathy, lumbar region Category: Medical Plan Mrs Brewster is here in follow-up today. We did a minimally invasive left L4-5 decompression on her last year in the setting of left leg pain that was in her calf radiating into her foot. At the time of our initial evaluation was noted she had a grade 1-2 spondylolisthesis and given her advanced age and poor bone quality the feeling was we would do just enough to decompress the L5 nerve root and hopefully that would give her some level of improvement. Unfortunately it has given her no improvement. She still has the pain in her calf going down to her foot. She does not have any pain in her back. She does not have any pain radiating from her buttock into her thigh it is strictly from the outer part of the left calf into the foot. It is asymptomatic when she is sitting but as soon as she stands for more than a few minutes the pain is severe. It brings her to tears and she is often struggling just to do minimal activity. She had no appreciable relief with the simple decompression we did last year. Thankfully her strength is good. She was taking gabapentin and tramadol but had some side effects since been looking to get off these. She is just frustrated with her quality of life at her age. I am going to order a new MRI to assess the situation postoperatively and see if the nerve still has compression. I did admonished her that given the spondylolisthesis we saw last time, going into do more drilling and more decompression could destabilize her and this is something that I am doubtful Dr. Carpenter would want to pursue given her bone quality. Nonetheless, we will take a look and see if there is any residual compression. I will also get standing flexion-extension x-rays. We briefly discussed the option of a consultation for spinal cord stimulator as well. We can refer her to our pain management colleagues if this is something she wants to consider. I will see her back after all the imaging is completed. She prefers to get her MRIs done at [facility]. Total amount of time spent in this visit was 20 minutes in discussion of symptoms, previous MRI imaging results and subsequent plan of care Luiz Carpenter MD,PhD [facility] Orders: Orders MR lumbar spine wo/w con Today M54.16 - Radiculopathy, lumbar region XR lumbar spine 4V min Today M54.16 - Radiculopathy, lumbar region Coding Level of Care Code Est Pt Level 3 (81615) Diagnoses Lumbar radiculopathy M54.16
== END 2023-07-21 14:56 | disposition home or self-care (01) ==
PROVIDERS: PCP Family Medicine; Visit Provider Physician Assistant
DX: M54.16 Radiculopathy, lumbar region (principal)
CPT/HCPCS: 99213

== ENCOUNTER 2023-07-21 13:22 | Outpatient (REF) | payer OTHER, SELFPAY ==
--- NOTE | ~2023-07-21 | XR_ITS ---
EXAMINATION: XR LUMBOSACRAL SPINE WITH OBLIQUES CLINICAL INFORMATION: Radiculopathy lumbar region. COMPARISON: None available. TECHNIQUE: 4 views of the lumbar spine. FINDINGS: The bones are diffusely demineralized. Atherosclerotic aortoiliac calcifications. Levoscoliosis of the lumbar spine. Two (2) metallic devices over the lumbar spine. Advanced multilevel degenerative changes in the lumbar spine with yjvosvgk-of-qaphmf loss of disc space height at L3-L4, L4-L5 and L5-S1. Grade 1 anterolisthesis of L4 on L5 with flexion and extension. Minimal grade 1 anterolisthesis of L5 on S1 with flexion and extension. 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 XR/XR lumbar spine 4V min IMPRESSION: Advanced multilevel degenerative disc disease most notable at L3-L4, L4-L5 and L5-S1.
== END 2023-07-21 13:23 | disposition home or self-care (01) ==
LOC: HO.HOSX 13:22
PROVIDERS: PCP Family Medicine; Visit Provider Physician Assistant
DX: M54.16 Radiculopathy, lumbar region (principal)
CPT/HCPCS: 72110; 99212

== ENCOUNTER 2023-09-07 14:27 | Outpatient (AMB) | payer OTHER, SELFPAY ==
--- NOTE | 2023-09-07 14:51 | HO.SPINEOV ---
Intake Visit Reasons: MRI f/u Intake Note: Ms. Brewster is here to F/u on the MRI Results. Embosser Operator Required: No Allergies No Known Allergies Allergy (Verified 09/07/23 14:56) Assessment & Plan Assessment & Plan (1) Lumbar radiculopathy: Code(s): M54.16 - Radiculopathy, lumbar region Category: Medical Plan MRs Brewster is here in follow-up. She has had a persistent pain in the outer part of her calf going to the top of her foot which we suspected was part of an L5 radiculopathy. We did an left L4-5 decompression and foraminotomy on her l in February that unfortunately did not give her any relief. She also has a component of left hip pain as well. I reimaged her lumbar spine with standing x-rays and lumbar MRI with and without delvis 0 done at [facility]. Her standing x-rays show the spondylolisthesis at L4-5, grade 1 bordering on grade 2. It may translate slightly but no overt instability. I reviewed her MRI imaging. The report suggests that she has worsening of the bilateral L5 foraminal stenosis at the L5-S1 disc level but on the T1 sagittal imaging and on the T2 axial I can clearly see the nerve roots tracking out the L5 foramen and there was no compression on them. The previous postsurgical area in the lateral recess of left L4-5 also looks great. I am not sure what to tell her. There is a suspicion that the spondylolisthesis could have something to do with this because her symptoms are very mechanical with standing, but given that she is almost 89 years old it is very doubtful that Dr. Carpenter is going to recommend correction of that defect surgically with fusion given the risk of potential complications and pseudoarthrosis with her bone quality. She has had injections in the past with very little success but is interested in considering them again. She would like to try someone different than the [facility] where she had them before. I will have her see Dr. Johnson. I also briefly spoke with her about a spinal cord stimulator option. This may be something she will have to consider. Total amount of time spent in this visit was 20 minutes in discussion of symptoms, MRI imaging results and subsequent plan of care Luiz Carpenter MD,PhD [facility] Orders: Referrals Pain Management Referral M54.16 - Radiculopathy, lumbar region Coding Level of Care Code Est Pt Level 3 (75170) Diagnoses Lumbar radiculopathy M54.16
== END 2023-09-07 15:21 | disposition home or self-care (01) ==
PROVIDERS: PCP Family Medicine; Visit Provider Physician Assistant
DX: M54.16 Radiculopathy, lumbar region (principal)
CPT/HCPCS: 99213

== ENCOUNTER → 2023-09-07 14:27 | Outpatient (BNVA) | payer OTHER, SELFPAY | PROVIDERS: PCP Family Medicine; Visit Provider Physician Assistant | DX: M54.16 Radiculopathy, lumbar region (principal) | CPT/HCPCS: 99212 ==

== ENCOUNTER 2023-09-29 09:29 | Outpatient (AMB) | payer OTHER, SELFPAY ==
--- NOTE | 2023-09-29 09:35 | A.OFFVIS_ITS ---
Vital Signs 3 09/29/23 09:37 Height 5 ft 3.5 in Weight 140 lb BMI 24.4 BP 160/69 H Blood Pressure Location Lt brachial Position Sitting Respiration 14 Pulse 64 Pulse Source Pulse Oximeter Pulse Oximetry (%) 97 Oxygen Delivery Method Room Air Intake Visit Reasons: Possible injection/SCS per Yue Quiroz Allergies No Known Allergies Allergy (Verified 09/29/23 09:39) Medication List - Last Reconciled 09/29/23 by Saadia Chaudhry LPN amlodipine 10 mg PO BEDTIME cream base no.105 (bulk) (Base W301 cream) Ketoprofen 10%, Baclofen 5%, Cyclobenzaprine 2%, Bupivacaine 1% SIG: apply pea-sized amount 3-5 times daily to painful areas as needed diazepam 2.5 mg PO DAILY PRN duloxetine 20 mg PO DAILY bkcxiusssdm-xdzurcgzs-azwafcjf 100-62.5-25 mcg (Trelegy Ellipta) 1 ea inhalation BEDTIME folic acid 1 mg PO DAILY gabapentin 200 mg PO DAILY ipratropium bromide 2 sprays intranasal TID ketoconazole 2% 1 appl topical DAILY loratadine 10 mg PO DAILY multivitamin 1 tab PO DAILY mupirocin 2% 1 appl topical DAILY nebivolol 20 mg PO DAILY tramadol 100 mg PO DAILY@1700 tramadol 150 mg PO DAILY PRN valsartan 320 mg PO DAILY HPI HPI Possible injection/SCS per Yue Quiroz: Details: 88-year-old female who presents today to the office for a possible injection/spinal cord stimulator. She underwent a left L4-5 decompression in February 2023 in the setting of left leg pain that was in her calf radiating into her foot. She did have some modest improvement in the left leg pain. She is since feeling like a diffuse weakness in her leg. She still has the pain in her left leg from calf going down to her foot. She does not have any pain in her back. She does not have any pain radiating from her buttock into her thigh; it is strictly from the outer part of the left calf into the foot. It is asymptomatic when she is sitting, but as soon as she stands for more than a few minutes, the pain is severe.? She often struggles just to do minimal activity. She states that her leg will give out on her when she is in the shower or going down stairs. She denies any paresthesia or numbness in the upper or lower extremities. She had used duloxetine, which is known to cause hyperreflexia. She is taking tramadol and gabapentin with some mild side effects. She had two injections at [facility] in the past. Past procedures 10/26/2022: Caudal DAVID with catheter at [facility] Medical History (Updated 09/29/23 @ 11:24 by Cristian Johnson MD) Overactive bladder Incontinence Atrophy of left kidney COVID-19 Back pain History of decreased renal function Depression Weakness of left leg History of hearing loss Hx of sepsis Emphysema, unspecified Chronic obstructive pulmonary disease, unspecified Osteoporosis Osteopenia High blood pressure Surgical History H/O colonoscopy Hx of hysterectomy Social History Are you a primary respiratory care assistant to a significant other at home: No Do you presently have visiting nurse or other home services: Yes (meals on wheels) Patient Tobacco Use Status: Current everyday Tobacco user Tobacco use type: Cigarette Cigarettes Per Day: 3 Years Smoked: 70 Review of Systems Const All systems reviewed & are unremarkable except as noted in HPI and below Physical Exam Vital Signs: Last Vital Signs Pulse 64 09/29/23 09:37 Resp 14 09/29/23 09:37 BP 160/69 H 09/29/23 09:37 Pulse Ox 97 09/29/23 09:37 Oxygen Delivery Method Room Air 09/29/23 09:37 BMI result Body Mass Index 24.4 General: Appears afebrile. Alert and oriented. Mood and affect appropriate. Follows and participates in conversation appropriately. Respiratory effort is unlabored. Able to transition from sit to stand unassisted. Ambulates with bilaterally normal heel strike and toe off. Strength?is?intact.?Straight?leg?raise is positive. Mild?symptoms?in?the left lower?back. Results Reviewed Results Reviewed: 08/07/23: XR LUMBOSACRAL SPINE WITH OBLIQUES FINDINGS: The bones are diffusely demineralized. Atherosclerotic aortoiliac calcifications. Levoscoliosis of the lumbar spine. Two (2) metallic devices over the lumbar spine. Advanced multilevel degenerative changes in the lumbar spine with bljubphs-ky-rnqzya loss of disc space height at L3-L4, L4-L5 and L5-S1. Grade 1 anterolisthesis of L4 on L5 with flexion and extension. Minimal grade 1 anterolisthesis of L5 on S1 with flexion and extension. 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 IMPRESSION: Advanced multilevel degenerative disc disease most notable at L3-L4, L4-L5 and L5-S1. 08/09/23: MR LUMBAR SPINE WO CON Assessment & Plan Assessment & Plan (1) Lumbar radiculopathy: Code(s): M54.16 - Radiculopathy, lumbar region Category: Medical (2) Post laminectomy syndrome: Code(s): M96.1 - Postlaminectomy syndrome, not elsewhere classified Category: Medical Plan Discussed cortisone injection vs. spinal cord stimulator as possible treatment options for the left leg pain. We will schedule her for left L4 and L5 transforaminal epidural steroid injections. Discussed the risks and benefits of the procedure with the patient in detail. All questions were answered. The patient is on board with the plan. Advised to continue taking pain medications for better relief. I also explained the patient that we need a psychology assessment from [employer] for trial of spinal cord stimulator device. Justification for interventional therapy: ? Patient with average pain > 6/10 ? Patient has exhausted conservative therapy. ? Patient unable to tolerate physical therapy due to pain. . Patient has a good understanding of their pain condition and has appropriate mental and social support. Scribed for Dr. Johnson by Micah Pimentel, medical referral coordinator, on 09/29/2023. I, Dr. Johnson, have personally reviewed and agree with the information entered by the scribe. Coding Level of Care Code New Pt Level 4 (29854) Diagnoses Lumbar radiculopathy M54.16 Post laminectomy syndrome M96.1
[2023-09-29 09:37] VITALS: BP 160/69; PULSE 64; RESP 14; O2SAT 97; BMI 24.4
== END 2023-09-29 09:58 | disposition home or self-care (01) ==
PROVIDERS: PCP Family Medicine; Visit Provider Internal Medicine
DX: M54.16 Radiculopathy, lumbar region (principal); M96.1 Postlaminectomy syndrome, not elsewhere classified
CPT/HCPCS: 99214

== ENCOUNTER → 2023-09-29 09:29 | Outpatient (BNVA) | payer OTHER, SELFPAY | PROVIDERS: PCP Family Medicine; Visit Provider Internal Medicine | DX: M54.16 Radiculopathy, lumbar region (principal); M96.1 Postlaminectomy syndrome, not elsewhere classified | CPT/HCPCS: 99212 ==

== ENCOUNTER 2023-11-16 06:05 | Outpatient (REF) | payer OTHER, SELFPAY | END 2023-11-16 06:06 | disposition home or self-care (01) | LOC: CF 06:05 | PROVIDERS: Visit Provider Internal Medicine | DX: M54.16 Radiculopathy, lumbar region (principal) | CPT/HCPCS: 64483; 64484; J1100; Q9967 ==

== ENCOUNTER 2023-11-16 09:49 | Outpatient (AMB) | payer OTHER, SELFPAY ==
[2023-11-16 09:57] VITALS: BP 150/72; PULSE 67; RESP 15; O2SAT 99
--- NOTE | 2023-11-16 10:49 | A.OFFVIS_ITS ---
Vital Signs 11/16/23 09:57 11/16/23 10:50 BP 150/72 H 161/63 H Blood Pressure Location Lt brachial Lt brachial Position Sitting Sitting Respiration 15 16 Pulse 67 73 Pulse Source Pulse Oximeter Pulse Oximeter Pulse Oximetry (%) 99 96 Oxygen Delivery Method Room Air Room Air Comment Pre-op Post-op Intake Visit Reasons: Left L4-L5 TFESI Allergies No Known Allergies Allergy (Verified 09/29/23 09:39) PFSH Medical History (Updated 09/29/23 @ 11:24 by Cristian Johnson MD) Overactive bladder Incontinence Atrophy of left kidney COVID-19 Back pain History of decreased renal function Depression Weakness of left leg History of hearing loss Hx of sepsis Emphysema, unspecified Chronic obstructive pulmonary disease, unspecified Osteoporosis Osteopenia High blood pressure Surgical History H/O colonoscopy Hx of hysterectomy Social History Are you a primary healthcare network consultant to a significant other at home: No Do you presently have visiting nurse or other home services: Yes (meals on wheels) Patient Tobacco Use Status: Current everyday Tobacco user Tobacco use type: Cigarette Cigarettes Per Day: 3 Years Smoked: 70 Assessment & Plan Assessment & Plan Orders: Orders FL guidance in treatment room Today M54.16 - Radiculopathy, lumbar region Coding
[2023-11-16 10:50] VITALS: BP 161/63; PULSE 73; RESP 16; O2SAT 96
--- NOTE | 2023-11-16 11:14 | MHC.OFFVIS ---
Vital Signs 11/16/23 09:57 11/16/23 10:50 BP 150/72 H 161/63 H Blood Pressure Location Lt brachial Lt brachial Position Sitting Sitting Respiration 15 16 Pulse 67 73 Pulse Source Pulse Oximeter Pulse Oximeter Pulse Oximetry (%) 99 96 Oxygen Delivery Method Room Air Room Air Comment Pre-op Post-op Intake Visit Reasons: Left L4-L5 TFESI Allergies No Known Allergies Allergy (Verified 09/29/23 09:39) HPI HPI Left L4-L5 TFESI: Details: Patient presents for scheduled procedure. Denies any recent cough, cold, infection, fever or other significant changes in medical history since last office visit. [facility] Medical History (Updated 09/29/23 @ 11:24 by Cristian Johnson MD) Overactive bladder Incontinence Atrophy of left kidney COVID-19 Back pain History of decreased renal function Depression Weakness of left leg History of hearing loss Hx of sepsis Emphysema, unspecified Chronic obstructive pulmonary disease, unspecified Osteoporosis Osteopenia High blood pressure Surgical History H/O colonoscopy Hx of hysterectomy Social History Are you a primary emergency care attendant to a significant other at home: No Do you presently have visiting nurse or other home services: Yes (meals on wheels) Patient Tobacco Use Status: Current everyday Tobacco user Tobacco use type: Cigarette Cigarettes Per Day: 3 Years Smoked: 70 Physical Exam Vital Signs: Last Vital Signs Pulse 73 11/16/23 10:50 Resp 16 11/16/23 10:50 BP 161/63 H 11/16/23 10:50 Pulse Ox 96 11/16/23 10:50 Oxygen Delivery Method Room Air 11/16/23 10:50 Office Procedures Details: Transforaminal epidural steroid injection, Left L4/L5 and L5/S1 After obtaining written consent, pre-procedure blood pressure and heart rate were stable and recorded in the nursing record. The patient was placed in the prone position on the fluoroscopy table. The lumbosacral area was prepped with chloraprep, allowed to dry and draped in sterile fashion. Using fluoroscopy, the skin overlying our target was anesthetized with 0.5% lidocaine. A 22 gauge 3.5 inch spinal needle was advanced to the safe triangle in the upper pole of the left L4 foramen. No paresthesias were elicited with needle placement and aspiration was negative for blood and CSF. Correct needle position was confirmed with approximately 1 ml contrast dye (Omnipaque 180 mg/ml) injected under real-time fluoroscopy. No evidence of vascular or intrathecal uptake was seen and there was both epidural and peripheral spread of the contrast agent. 7.5 mg dexamethasone plus 1 ml containing 0.5% lidocaine was slowly injected. The needle was flushed and removed. The same procedure was repeated for the remaining levels. The skin was cleansed and a sterile bandages were applied. The patient tolerated the procedure well and no complications were encountered. Following the procedure the patient's vital signs were stable. The patient was discharged home in good condition with post-procedural instructions. Time Out: Immediately prior to the procedure, the following was verbally confirmed that there is a signed consent form and that the correct patient, planned procedure, site and side are consistent with documentation and that necessary equipment and/or blood products are available prior to the start of the case. Complications: none EBL: <5 cc 69047 - Lumbar/Sacral 77352 - Lumbar/Sacral, additional level Procedure code (CPT) selection complete Assessment & Plan Assessment & Plan (1) Lumbar radiculopathy: Code(s): M54.16 - Radiculopathy, lumbar region Category: Medical Plan Patient is status post left L4 and L5 transforaminal epidural steroid injection. Patient tolerated procedure well and was discharged home in stable condition with discharge instructions. All questions were answered. We will follow-up via telephone or in clinic to assess response to therapy. A follow-up appointment was made during today's visit. Orders: Orders FL guidance in treatment room Today M54.16 - Radiculopathy, lumbar region Coding Level of Care Code Procedure Only Diagnoses Lumbar radiculopathy M54.16 CPT Codes Transforaminal Epidural Steroid Inj - TESI 3: 20296 - Lumbar/Sacral ([id number]) Transforaminal Epidural Steroid Inj - TESI 4: 71705 - Lumbar/Sacral, additional level ([id number])
== END 2023-11-16 10:57 | disposition home or self-care (01) ==
LOC: HO.PMCPRC 09:49
PROVIDERS: PCP Family Medicine; Visit Provider Internal Medicine
DX: M54.16 Radiculopathy, lumbar region (principal)
CPT/HCPCS: 64483; 64484

== ENCOUNTER 2023-12-11 08:59 | Outpatient (AMB) | payer OTHER, SELFPAY ==
--- NOTE | 2023-12-11 09:07 | A.OFFVIS_ITS ---
Vital Signs 12/11/23 09:10 Height 5 ft 3.5 in Weight 140 lb BMI 24.4 BP 140/82 H Blood Pressure Location Lt brachial Position Sitting Respiration 14 Pulse 96 Pulse Source Pulse Oximeter Pulse Oximetry (%) 96 Oxygen Delivery Method Room Air Intake Visit Reasons: s/p Left L4-L5 TFESI Allergies No Known Allergies Allergy (Verified 12/11/23 09:11) Medication List - Last Reconciled 12/11/23 by Saadia Chaudhry LPN amlodipine 10 mg PO BEDTIME cream base no.105 (bulk) (Base W301 cream) Ketoprofen 10%, Baclofen 5%, Cyclobenzaprine 2%, Bupivacaine 1% SIG: apply pea-sized amount 3-5 times daily to painful areas as needed diazepam 2.5 mg PO DAILY PRN duloxetine 20 mg PO DAILY uqdanxdrdme-cuehvguhf-ydvxglfh 100-62.5-25 mcg (Trelegy Ellipta) 1 ea inhalation BEDTIME folic acid 1 mg PO DAILY ipratropium bromide 2 sprays intranasal TID ketoconazole 2% 1 appl topical DAILY loratadine 10 mg PO DAILY multivitamin 1 tab PO DAILY mupirocin 2% 1 appl topical DAILY nebivolol 20 mg PO DAILY valsartan 320 mg PO DAILY HPI HPI s/p Left L4-L5 TFESI: Details: 88-year-old female who presents today to the office for status post left L4-L5 transforaminal epidural steroid injection. She had no relief from her injection. She is interested in proceeding with the trial of a spinal cord stimulator to see if that might give some relief. She continues to experience lumbar radicular pain, especially on the left side. Past procedures 11/16/23: Transforaminal epidural steroid injection, Left L4/L5 and L5/S1: No relief. 10/26/2022: Caudal DAVID with catheter at [facility] Medical History (Updated 09/29/23 @ 11:24 by Cristian Johnson MD) Overactive bladder Incontinence Atrophy of left kidney COVID-19 Back pain History of decreased renal function Depression Weakness of left leg History of hearing loss Hx of sepsis Emphysema, unspecified Chronic obstructive pulmonary disease, unspecified Osteoporosis Osteopenia High blood pressure Surgical History H/O colonoscopy Hx of hysterectomy Social History Are you a primary health care liaison to a significant other at home: No Do you presently have visiting nurse or other home services: Yes (meals on wheels) Patient Tobacco Use Status: Current everyday Tobacco user Tobacco use type: Cigarette Cigarettes Per Day: 3 Years Smoked: 70 Review of Systems Const All systems reviewed & are unremarkable except as noted in HPI and below Physical Exam Vital Signs: Last Vital Signs Pulse 96 12/11/23 09:10 Resp 14 12/11/23 09:10 BP 140/82 H 12/11/23 09:10 Pulse Ox 96 12/11/23 09:10 Oxygen Delivery Method Room Air 12/11/23 09:10 BMI result Body Mass Index 24.4 General: Appears afebrile. Alert and oriented. Mood and affect appropriate. Follows and participates in conversation appropriately. Respiratory effort is unlabored. Able to transition from sit to stand unassisted. Ambulates with bilaterally normal heel strike and toe off. Bilateral pitting edema up to mid cardenas area. Results Reviewed Results Reviewed: No imaging is available for review. Assessment & Plan Assessment & Plan (1) Post laminectomy syndrome: Code(s): M96.1 - Postlaminectomy syndrome, not elsewhere classified Category: Medical (2) Lumbar radiculopathy: Code(s): M54.16 - Radiculopathy, lumbar region Category: Medical Plan Discussed the risk and benefits of non-rechargeable spinal cord stimulator therapy. She is interested in proceeding with a trial of a spinal cord stimulator. Will place a referral for psychology clearance. Once we have received psychology clearance, we will plan for a trial of a spinal cord stimulator with an [employer] device. The patient will receive a call from [facility] ([place], [place]) for the psychology assessment. Scribed for Dr. Johnson by Micah Pimentel, biomedical engineer, on 12/11/2023. I, Dr. Johnson, have personally reviewed and agree with the information entered by the scribe. Medications: New bupropion HCl SR (Wellbutrin SR) 100 mg PO DAILY Coding Level of Care Code Est Pt Level 3 (04543) Diagnoses Post laminectomy syndrome M96.1 Lumbar radiculopathy M54.16
[2023-12-11 09:10] VITALS: BP 140/82; PULSE 96; RESP 14; O2SAT 96; BMI 24.4
== END 2023-12-11 09:32 | disposition home or self-care (01) ==
LOC: HO.PMC 08:59
PROVIDERS: PCP Family Medicine; Visit Provider Internal Medicine
DX: M96.1 Postlaminectomy syndrome, not elsewhere classified (principal); M54.16 Radiculopathy, lumbar region
CPT/HCPCS: 99213

== ENCOUNTER → 2023-12-11 08:59 | Outpatient (BNVA) | payer OTHER, SELFPAY | PROVIDERS: PCP Family Medicine; Visit Provider Internal Medicine | DX: M96.1 Postlaminectomy syndrome, not elsewhere classified (principal); M54.16 Radiculopathy, lumbar region | CPT/HCPCS: 99212 ==

== ENCOUNTER 2024-03-20 09:23 | Day surgery (SDC) | payer OTHER, SELFPAY ==
[2024-03-18 10:54] VITALS: BMI 24.4
--- NOTE | 2024-03-19 09:36 | HO.ANESPROP2 ---
Documented by User: Alexandria Woo NP 03/19/24 09:37 HPI - Anesthesia Eval Consult details Narrative: 88yo F for Spinal Cord Stimulation Trial s/p Lumbar decompression 02/2023 with GA-ETT (required Glidescope) PMFSH Active Problems Active Problems: All Active Problems Post laminectomy syndrome (Acute) Leg weakness (Acute) Lumbar radiculopathy (Acute) Facet arthritis of lumbar region (Acute) Lumbar stenosis with neurogenic claudication (Acute) Past Medical History Medical History (Updated 09/29/23 @ 11:24 by Cristian Johnson MD) Overactive bladder Incontinence Atrophy of left kidney COVID-19 Back pain History of decreased renal function Depression Weakness of left leg History of hearing loss Hx of sepsis Emphysema, unspecified Chronic obstructive pulmonary disease, unspecified Osteoporosis Osteopenia High blood pressure Family History Family history of problems with anesthesia: No Surgical History Surgical History (Updated 03/18/24 @ 10:51 by Albina Britton RN) Hx of decompressive lumbar laminectomy H/O colonoscopy Hx of hysterectomy History of Problems with Anesthesia: No Social History Social History Are you a primary senior care specialist to a significant other at home: No Do you presently have visiting nurse or other home services: Yes (meals on wheels) Patient Tobacco Use Status: Current everyday Tobacco user Tobacco use type: Cigarette Cigarettes Per Day: 5 Years Smoked: 70 Use of substances other than those prescribed or required for medical reasons: No Are you DNR?: Yes Advance Directives: No Advance Directives Information Provided: Yes Advance Directives on File: Yes Recently lost weight without trying: No Nutrition Risks: No Nutritional Risk Meds Allergies Allergy/AdvReac Type Severity Reaction Status Date / Time No Known Allergies Allergy Verified 12/11/23 09:11 Home Medications ?Medication ?Instructions ?Recorded ?Confirmed ?Last Taken ?Type fluticasone fur. 100 mcg-umeclid 1 ea inhalation BEDTIME 10/06/22 03/18/24 Unknown History 62.5 mcg-vilant 25 mcg inhalat.powder (Trelegy Ellipta) folic acid 1 mg tablet 1 mg PO DAILY 10/06/22 03/18/24 Unknown History loratadine 10 mg tablet 10 mg PO DAILY 10/06/22 03/18/24 Unknown History nebivolol 10 mg tablet 20 mg PO DAILY 10/06/22 03/18/24 02/28/23 06:30 History valsartan 160 mg tablet 320 mg PO DAILY 10/06/22 03/18/24 Unknown History cream base no.105 (bulk) (Base See Rx Instructions miscellaneous 12/16/22 03/18/24 Unknown History W301 cream) .COMPLEX PRN pain amlodipine 5 mg tablet 10 mg PO BEDTIME 02/17/23 03/18/24 Unknown History diazepam 5 mg tablet 2.5 mg PO DAILY PRN Anxiety 02/17/23 03/18/24 Unknown History duloxetine 20 mg capsule,delayed 20 mg PO DAILY 02/17/23 03/18/24 Unknown History release ipratropium bromide 42 mcg (0.06 2 spray intranasal TID 02/17/23 03/18/24 Unknown History %) nasal spray ketoconazole 2 % topical cream 1 appl topical DAILY 02/17/23 03/18/24 Unknown History multivitamin 1 tab PO DAILY 02/17/23 03/18/24 Unknown History mupirocin 2 % topical ointment 1 appl topical DAILY 02/17/23 03/18/24 Unknown History bupropion HCl 100 mg tablet,12 hr 100 mg PO DAILY 12/11/23 03/18/24 Unknown History sustained-release (Wellbutrin SR) Exam Height,Weight and Vital Signs: Height 5 ft 3.5 in Weight 63.503 kg Assessment and Plan Assessment Anesthesia Assessment: Chart Reviewed Final Anesthetic Review Family History of Problems with Anesthesia: No History of Problems with Anesthesia: No Documented by User: Vikki Nixon MD 03/20/24 12:32 [facility] Past Medical History Medical History (Updated 09/29/23 @ 11:24 by Cristian Johnson MD) Overactive bladder Incontinence Atrophy of left kidney COVID-19 Back pain History of decreased renal function Depression Weakness of left leg History of hearing loss Hx of sepsis Emphysema, unspecified Chronic obstructive pulmonary disease, unspecified Osteoporosis Osteopenia High blood pressure Surgical History Surgical History (Updated 03/18/24 @ 10:51 by Albina Britton RN) Hx of decompressive lumbar laminectomy H/O colonoscopy Hx of hysterectomy Social History Social History Are you a primary senior care specialist to a significant other at home: No Do you presently have visiting nurse or other home services: Yes (meals on wheels) Patient Tobacco Use Status: Current everyday Tobacco user Tobacco use type: Cigarette Cigarettes Per Day: 5 Years Smoked: 70 Use of substances other than those prescribed or required for medical reasons: No Are you DNR?: Yes Advance Directives: No Advance Directives Information Provided: Yes Advance Directives on File: Yes Recently lost weight without trying: No Nutrition Risks: No Nutritional Risk Meds Allergies Allergy/AdvReac Type Severity Reaction Status Date / Time No Known Allergies Allergy Verified 12/11/23 09:11 Home Medications ?Medication ?Instructions ?Recorded ?Confirmed ?Last Taken ?Type fluticasone fur. 100 mcg-umeclid 1 ea inhalation BEDTIME 10/06/22 03/18/24 Unknown History 62.5 mcg-vilant 25 mcg inhalat.powder (Trelegy Ellipta) folic acid 1 mg tablet 1 mg PO DAILY 10/06/22 03/18/24 Unknown History loratadine 10 mg tablet 10 mg PO DAILY 10/06/22 03/18/24 Unknown History nebivolol 10 mg tablet 20 mg PO DAILY 10/06/22 03/18/24 02/28/23 06:30 History valsartan 160 mg tablet 320 mg PO DAILY 10/06/22 03/18/24 Unknown History cream base no.105 (bulk) (Base See Rx Instructions miscellaneous 12/16/22 03/18/24 Unknown History W301 cream) .COMPLEX PRN pain amlodipine 5 mg tablet 10 mg PO BEDTIME 02/17/23 03/18/24 Unknown History diazepam 5 mg tablet 2.5 mg PO DAILY PRN Anxiety 02/17/23 03/18/24 Unknown History duloxetine 20 mg capsule,delayed 20 mg PO DAILY 02/17/23 03/18/24 Unknown History release ipratropium bromide 42 mcg (0.06 2 spray intranasal TID 02/17/23 03/18/24 Unknown History %) nasal spray ketoconazole 2 % topical cream 1 appl topical DAILY 02/17/23 03/18/24 Unknown History multivitamin 1 tab PO DAILY 02/17/23 03/18/24 Unknown History mupirocin 2 % topical ointment 1 appl topical DAILY 02/17/23 03/18/24 Unknown History bupropion HCl 100 mg tablet,12 hr 100 mg PO DAILY 12/11/23 03/18/24 Unknown History sustained-release (Wellbutrin SR) Exam Airway Mallampati Class: II TM Dist: >3cm Neck ROM: Full Assessment and Plan Assessment Anesthesia Assessment: Anesthesia Plan Discussed Final Anesthetic Review NPO: Yes ASA Class: III Final Preanesthetic Review: No Changes in Pt Med Stat, Meds/Allgs Chart Reviewed, Consent Obtained/Reviewed, Anes Risks/Benef Reviewed and DNR Form (If Appl.) Patient Risk: Intermediate Procedure Risk: Low Anesthetic Plan Anesthetic Plan: TIVA Disposition: Standard PACU
--- NOTE | ~2024-03-20 | FL_ITS ---
EXAMINATION: FL GUIDANCE ONLY HISTORY: spinal cord stimulation trial COMPARISON: None available. TECHNIQUE: Fluoroscopy time: 5 minutes, 33 seconds. Cumulative Dose: 84.72 mGy. DAP: 12.208 uGy-m2 (microgray-meter squared). Images: 3. FINDINGS: Images demonstrate placement of a spinal stimulator. The tip of the electrode is at the superior endplate of T7. FL/FL guidance in OR IMPRESSION: Fluoroscopy during procedure. Please see procedure report for additional information. Electronically signed by: Danial Hercules MD 03/20/2024 02:54 PM [facility]
[2024-03-20 09:44] VITALS: BMI 26.7
[2024-03-20 10:21] VITALS: BP 180/53; PULSE 57; RESP 16; TEMP 36.9; O2SAT 97
[2024-03-20] MEDS: Lactated Ringers 1,000 ML 100 ML IVCONT (10:31)
[2024-03-20 11:21] LABS: MRSA Nasal PCR NEGATIVE (Negative); SA Nasal PCR NEGATIVE (Negative)
--- NOTE | 2024-03-20 11:26 | MHC.SHP ---
Pre-Procedural Eval Section A - 24 Hr Update-Section A only Date of Service: 03/20/24 The patient is an INPATIENT: No Changes since office visit: Yes Patient answered all questions The patient has been examined within 24 hours of the surgical procedure. The History & Physical has been completed within 30 days and I have reviewed it.: No Section B - Complete if H&P > 30 days Chief Complaint: Postlaminectomy syndrome, not elsewhere classified Relevant Family History (Specify if Yes): No Relevant Social History: None Present Medications: see Short Stay Collaborative assessment Medical History: No relevant PMH History of Previous Operations: No relevant previous surgery Allergies: Allergies Allergy/AdvReac Type Severity Reaction Status Date / Time No Known Allergies Allergy Verified 12/11/23 09:11 Review of Systems Sugical H&P ROS: Negative: Constitution, Cardiovascular and Respiratory Exam Surgical H&P Exam: Normal: HEENT, Normal: Heart and Normal: Lungs Plan Diagnosis/Plan: Unchanged I have reviewed the history and physical and performed a pertinent physical examination on my patient. No changes have occurred unless specified. Time Spent With Patient Time: Total time managing care of this patient today ____ minutes.
--- NOTE | 2024-03-20 11:27 | P.BOP_ITS ---
Brief Operative Note Date of Service: 03/20/24 Pre-op diagnosis: Post-laminectomy syndrome, lumbar radiculopathy Post-op diagnosis: same Procedure: Lumbar spinal cord stimulation trial Implants: Maxwell SCS lead Surgeon: Cristian Johnson MD Anesthesia: MAC Was an Boiler Shop Mechanic used for this Procedure?: No Estimated blood loss (mL): 2 Pathology: none sent Condition: stable Disposition: PACU
--- NOTE | 2024-03-20 11:27 | P.OP_ITS ---
Operative Note Operative Note Date of Service: 03/20/24 Narrative: Pre-procedure diagnosis: Post-laminectomy syndrome, lumbar radiculopathy Postprocedure diagnosis: Post-laminectomy syndrome, lumbar radiculopathy Procedure: Percutaneous Spinal Cord Stimulator Trial, lumbar After obtaining written consent, pre-procedure blood pressure and heart rate were recorded and are in the nursing record for review. A peripheral IV was started. Antibiotics, cefazolin 2 gram, were given intraoperatively. The patient was placed in a prone position.? The patient was sedated by the anesthesiologist. The thoracolumbar area was widely prepped with ChloraPrep, allowed to dry and draped in sterile fashion. Fluoroscopy was used to identify the target interlaminar spaces and appropriate needle insertion sites. The skin and subcutaneous tissue was anesthetized with 0.5% lidocaine. A 14 gauge Epimed epidural needle was then advanced from this point in a left paramedian approach to the epidural space opening at T12/L1 interspace, where loss of resistance was found using air. No paresthesias were elicited with needle placement. No CSF or heme was present upon needle placement. A guide wire was then used to confirm placement into the epidural space. The stimulator lead was advanced but could not be directed midline. A 2nd 14 gauge Epimed epidural needle was then advanced from a right parasagittal position and loss of resistance was obtained as before. The stimulator lead was then advanced from the right side and directed slightly across the midline to advanced in the left paramedian position, threaded to the top of T7 vertebral body. The lead advanced midline and dorsally.?The patient was woken up and appropriate coverage of her left-sided pain was confirmed. The needle was then completely removed under live fluoroscopy. The stimulator wire was then secured with Steri-Strips, Mastisol and tegaderm for skin dressing. The patient tolerated the procedure well and no complications were encountered. Following the procedure the patient's vital signs were stable. The patient was discharged home in good condition after being given discharge instructions. Time Out: Immediately prior to the procedure, the following was verbally confirmed that there is a signed consent form and that the correct patient, planned procedure, site and side are consistent with documentation and that necessary equipment and/or blood products are available prior to the start of t he case. Complications: none EBL: <2 cc
[2024-03-20 12:55] VITALS: BP 173/57; PULSE 58; RESP 15; TEMP 36.3; O2SAT 96
[2024-03-20 13:00] VITALS: BP 164/57; PULSE 56; RESP 15; O2SAT 96
[2024-03-20 13:05] VITALS: BP 171/60; PULSE 58; RESP 15; O2SAT 96
[2024-03-20 13:10] VITALS: BP 162/58; PULSE 58; RESP 16; O2SAT 98
[2024-03-20 13:25] VITALS: BP 177/70; PULSE 57; RESP 16; TEMP 36.3; O2SAT 98
== END 2024-03-20 14:09 | disposition home or self-care (01) ==
PROVIDERS: Registered Nurse Emergency; PCP Family Medicine; Visit Provider Internal Medicine
PROC: (CPT 63650; principal; 2024-03-20 11:30)
DX: M96.1 Postlaminectomy syndrome, not elsewhere classified (principal); M54.16 Radiculopathy, lumbar region; M62.81 Muscle weakness (generalized); I10 Essential (primary) hypertension; M81.0 Age-related osteoporosis without current pathological fracture; N26.1 Atrophy of kidney (terminal); Z86.19 Personal history of other infectious and parasitic diseases; N32.81 Overactive bladder; R32 Unspecified urinary incontinence; J44.9 Chronic obstructive pulmonary disease, unspecified; Z79.51 Long term (current) use of inhaled steroids; Z79.899 Other long term (current) drug therapy; Z98.890 Other specified postprocedural states; F17.210 Nicotine dependence, cigarettes, uncomplicated
CPT/HCPCS: 63650 ×2; 87640; 87641; C1897; J0665; J0690; J1100; J2003; J2405; J2704; J3010

== ENCOUNTER → 2024-03-20 09:23 | Outpatient (BNV) | payer OTHER, SELFPAY | PROVIDERS: PCP Family Medicine; Visit Provider Internal Medicine | DX: M96.1 Postlaminectomy syndrome, not elsewhere classified (principal) | CPT/HCPCS: 63650 ==

== ENCOUNTER 2024-03-27 11:02 | Outpatient (AMB) | payer OTHER, SELFPAY ==
--- NOTE | 2024-03-27 11:13 | MHC.OFFVIS ---
Vital Signs 03/27/24 11:14 Height 5 ft 3.5 in Weight 157 lb BMI 27.4 BP 158/72 H Blood Pressure Location Lt brachial Position Sitting Respiration 16 Pulse 79 Pulse Source Pulse Oximeter Pulse Oximetry (%) 97 Oxygen Delivery Method Room Air Intake Visit Reasons: S/p Maxwell SCS Trial 03/20/24 Painter Bottom Required: No Allergies No Known Allergies Allergy (Verified 03/27/24 11:17) Medication List - Last Reconciled 03/27/24 by Saadia Chaudhry LPN bupropion HCl SR 150 mg PO BID cream base no.105 (bulk) (Base W301 cream) Ketoprofen 10%, Baclofen 5%, Cyclobenzaprine 2%, Bupivacaine 1% SIG: apply pea-sized amount 3-5 times daily to painful areas as needed duloxetine 20 mg PO DAILY [id number]-agqzanpv 100-62.5-25 mcg (Trelegy Ellipta) 1 ea inhalation BEDTIME folic acid 1 mg PO DAILY ipratropium bromide 2 sprays intranasal TID ketoconazole 2% 1 appl topical DAILY loratadine 10 mg PO DAILY multivitamin 1 tab PO DAILY mupirocin 2% 1 appl topical DAILY nebivolol 20 mg PO DAILY pregabalin 50 mg PO BID valsartan 320 mg PO DAILY HPI HPI S/p Maxwell SCS Trial 03/20/24: Details: History of Present Illness The patient is an 88-year-old female presenting for follow-up after a lumbar spinal cord stimulation trial. Previously, an avid lead was placed on the right side to address her chronic low back pain. In the initial phase of the week post-trial, she experienced inadequate relief. Subsequently, her stimulation program was adjusted from burst to a paresthesia brace program, which yielded significant improvement. The patient reported at least a 50% reduction in pain, enhanced capability to perform tasks, and noticeable improvements in walking. This progress was further corroborated by her daughter, who observed improved posture and speed in her walking. The trial appears to have been successful in terms of functionality and pain relief. Pain Description - Onset: Development of chronic low back pain - Timing: Unspecified initial onset, but mentions recent trial - Quality: Descriptive of a positive response to paresthesia brace program - Primary Location: Lumbar region - Exacerbating Factors: Initial inadequate relief post-trial - Relieving Factors: Adjustment to paresthesia brace program - Functional Interference: Initial limitation in tasks and walking, with subsequent improvement noted in both Physical Exam - Integumentary System- Clean and dry lead insertion site Results Pain Management - Affect: Patient reports improvement in pain and functionality, suggesting enhanced mood - Analgesia: Transitioned from burst program to paresthesia brace program, reporting at least 50% pain reduction - Adverse Effects: None explicitly mentioned - Activities of Daily Living: Improvement in performing tasks and walking - Aberrant Drug-Related Behaviors: None noted or mentioned [facility] Medical History (Updated 09/29/23 @ 11:24 by Cristian Johnson MD) Overactive bladder Incontinence Atrophy of left kidney COVID-19 Back pain History of decreased renal function Depression Weakness of left leg History of hearing loss Hx of sepsis Emphysema, unspecified Chronic obstructive pulmonary disease, unspecified Osteoporosis Osteopenia High blood pressure Surgical History (Updated 03/18/24 @ 10:51 by Albina Britton RN) Hx of decompressive lumbar laminectomy H/O colonoscopy Hx of hysterectomy Social History Are you a primary restorative care technician to a significant other at home: No Do you presently have visiting nurse or other home services: Yes (meals on wheels) Patient Tobacco Use Status: Current everyday Tobacco user Tobacco use type: Cigarette Cigarettes Per Day: 5 Years Smoked: 70 Physical Exam Vital Signs: Last Vital Signs Pulse 79 03/27/24 11:14 Resp 16 03/27/24 11:14 BP 158/72 H 03/27/24 11:14 Pulse Ox 97 03/27/24 11:14 Oxygen Delivery Method Room Air 03/27/24 11:14 BMI result Body Mass Index 27.4 Assessment & Plan Assessment & Plan (1) Post laminectomy syndrome: Code(s): M96.1 - Postlaminectomy syndrome, not elsewhere classified Category: Medical (2) Lumbar radiculopathy: Code(s): M54.16 - Radiculopathy, lumbar region Category: Medical Plan Plan - Patient will call us when ready to proceed with the spinal cord stimulation implant Patient was informed and verbally consented to the use of an ambient scribe for clinic note documentation during this visit. Discussion Notes I discussed with the patient the current status post-lumbar spinal cord stimulation trial and the success following the switch to a paresthesia based program. We engaged in a detailed conversation about the procedure for a permanent spinal cord stimulator, covering the potential risks and complications such as infection and pocket-site pain. I ensured the patient fully understood the risks and benefits of proceeding with the implant. We agreed that she will let us know when she is prepared to proceed with the permanent implant. Patient Instructions - Inform our office when ready to proceed with the spinal cord stimulation implant. - Monitor the implantation site for any signs of infection or other issues and report as needed. - Continue with current pain management program until further notice. - Call our office with any questions or concerns. Coding Level of Care Code Est Pt Level 3 (07201) Diagnoses Post laminectomy syndrome M96.1 Lumbar radiculopathy M54.16
[2024-03-27 11:14] VITALS: BP 158/72; PULSE 79; RESP 16; O2SAT 97; BMI 27.4
== END 2024-03-27 11:48 | disposition home or self-care (01) ==
PROVIDERS: PCP Family Medicine; Visit Provider Internal Medicine
DX: M96.1 Postlaminectomy syndrome, not elsewhere classified (principal); M54.16 Radiculopathy, lumbar region
CPT/HCPCS: 99024

== ENCOUNTER → 2024-03-27 11:02 | Outpatient (BNVA) | payer OTHER, SELFPAY | PROVIDERS: PCP Family Medicine; Visit Provider Internal Medicine | DX: M96.1 Postlaminectomy syndrome, not elsewhere classified (principal); M54.16 Radiculopathy, lumbar region; Z96.82 Presence of neurostimulator | CPT/HCPCS: 99212 ==